=== PATIENT | male | born 1970 | race Caucasian/White ===

== ENCOUNTER → 2020-09-08 09:34 | Outpatient (BNVA) | payer MEDICAID, SELFPAY | PROVIDERS: Family Provider Family Medicine; PCP Family Medicine; Referring Provider Nurse Practitioner Family; Visit Provider Anesthesiology Pain Medicine | DX: M47.816 Spondylosis without myelopathy or radiculopathy, lumbar region (principal); M54.16 Radiculopathy, lumbar region; M54.9 Dorsalgia, unspecified; M16.0 Bilateral primary osteoarthritis of hip; Z79.891 Long term (current) use of opiate analgesic | CPT/HCPCS: 99205 ==

== ENCOUNTER 2020-09-08 11:08 | Outpatient (CLI) | payer MEDICAID, SELFPAY ==
--- NOTE | 2020-09-08 11:17 | XR_ITS ---
WS: [id number] Right hip, AP and frog-leg views, 09/08/2020 Clinical Data: M16.0 - Bilateral primary osteoarthritis of hip, RT HIP PAIN Comparison: None. Findings: No fractures or dislocations are seen. The hip joint is intact. The soft tissues are not remarkable. The adjacent pelvis is normal. There is spurring of the inferior portion of the right femoral head adjacent to its articulation with the inferior right acetabulum. XR/XR hip RT 2-3V wo/w pel* [id number] Impression: Moderate osteoarthritis of the right hip.
--- NOTE | 2020-09-08 11:17 | XR_ITS ---
WS: [id number] Lumbar spine, 5 views including obliques, 09/08/2020 Clinical Data: M47.816 - Spondylosis without myelopathy or radiculopathy, lumbar region Comparison: None. Findings: No compression fractures or subluxation is seen. There is disc space narrowing at L1-L2.. The transve rse processes and SI joints are normal. Osteoarthritic spurring at L1-L2 is present. The oblique films show no spondylolysis. XR/XR lumbar spine min 4V [id number] Impression: Osteoarthritis at L1-L2 along with disc space narrowing.
== END 2020-09-08 11:09 | disposition home or self-care (01) ==
LOC: RADWPI 11:16
PROVIDERS: PCP Family Medicine; Visit Provider Anesthesiology Pain Medicine
DX: M47.816 Spondylosis without myelopathy or radiculopathy, lumbar region (principal); M16.11 Unilateral primary osteoarthritis, right hip
CPT/HCPCS: 72110; 73502